=== PATIENT | male | born 2000 | race Two or more races ===

== ENCOUNTER 2019-06-12 09:23 | Emergency (ER) | payer MEDICAID ==
[2019-06-12 09:43] VITALS: BP 113/66
[2019-06-12] MEDS ORDERED: cefTRIAXone 250 MG VIAL IM STA (10:13)
[2019-06-12] MEDS ORDERED: AZITHROMYCIN 250 MG TABLET PO STA (10:13)
[2019-06-12] MEDS ORDERED: LIDOCAINE 1% 2 ML VIAL MC ONE (10:13)
--- NOTE | 2019-06-12 10:15 | ED Physician Documentation ---
History of Present Illness - Stated complaint Stated Complaint: RT WRIST PX/MALE - Chief complaint Chief Complaint: Ext Problem - History obtained from History obtained from: Patient - History of Present Illness Timing: How many weeks ago (1) - Additonal information Additional information: 19-year-old male has punched a beam with his right hand about 1 week ago when he has persistence of pain in the wrist he is unable to open a door without pain to the wrist and he is wondering about the possibility of a fracture. He initially had some swelling that is now resolved. In addition he is concerned about STD recurring. He has been with 2 different women and 1 of them has told him he had they have infection. He has had recent infection and he believes he may have passed this back and forth between partners. He is requesting treatment and is inquiring about the most efficient way to get his partner tested and treated. He specifically denies any specific symptoms today of STD. He denies any scrotal swelling or tenderness he denies any inguinal adenopathy he denies any discharge he denies any sores or outbreaks. Review of Systems Constitutional: denies: Fever Eyes: denies: Decreased vision Ears: denies: Ear pain Nose: denies: Rhinorrhea / runny nose, Congestion Throat: denies: Sore throat Cardiac: denies: Chest pain / pressure, Palpitations Respiratory: denies: Dyspnea, Cough GI: denies: Abdominal Pain, Nausea, Vomiting : denies: Dysuria, Frequency, Discharge Skin: denies: Rash Musculoskeletal: denies: Neck pain, Back pain, Extremity pain Neurologic: denies: Generalized weakness, Focal weakness, Numbness PD PAST MEDICAL HISTORY - Allergies Allergies/Adverse Reactions: Allergies Allergy/AdvReac Type Severity Reaction Status Date / Time No Known Drug Allergies Allergy Verified 06/12/19 09:38 PD ED PE NORMAL - Vitals Vital signs reviewed: Yes (normal) - General General: Alert and oriented X 3, No acute distress, Well developed/nourished - HEENT HEENT: Atraumatic, PERRL, EOMI - Respiratory Respiratory: No respiratory distress - Derm Derm: Normal color, Warm and dry, No rash - Extremities Extremities: No deformity, No edema, Other (mild tenderness to the dorsal wrist on the right with preserved function and distal n/v. ) - Neuro Neuro: Alert and oriented X 3, flap lining binder 2-12 intact, No motor deficit, No sensory deficit, Normal speech Eye Opening: Spontaneous Motor: Obeys Commands Verbal: Oriented GCS Score: 15 - Psych Psych: Normal mood, Normal affect Results - Vitals Vitals: Vital Signs - 24 hr 06/12/19 09:38 Temperature 36.5 C Heart Rate 72 Respiratory 14 Rate Blood Pressure 113/66 O2 Saturation 99 Oxygen O2 Source Room air - Rads (name of study) wrist Radiology: Prelim report reviewed (Impression: Normal wrist radiography.), EMP read indepedently, See rad report PD MEDICAL DECISION MAKING - ED course Complexity details: reviewed results, re-evaluated patient, considered differential, d/w patient ED course: 19-year-old male with a sprained wrist and exposure to STD. He is treated for the STD empirically and a specimen is obtained for confirmation. He is administered Rocephin 250 mg IM and azithromycin 1 g p.o. He is placed into a volar wrist splint. Is given instructions about wrist sprain. Is given instructions about male STD treated. Departure - Departure Disposition: 01 Home, Self Care Clinical Impression: STD exposure Sprain of right wrist Qualifiers: Encounter type: initial encounter Qualified Code(s): S63.501A - Unspecified sprain of right wrist, initial encounter Condition: Stable Instructions: ED Sprain Wrist, ED STD Male Treated Follow-Up: Derrick [facility] [Provider Group]
--- NOTE | 2019-06-12 10:33 | XRAY Report ---
Reason: persistent pain after punching a beam Procedure Date: 06/12/2019 Accession Number: [id number] / [id number] Procedure: XR - Wrist 4 View RT CPT Code: Final Report FULL RESULT: EXAM: RIGHT WRIST RADIOGRAPHY EXAM DATE: 06/12/2019 10:24 AM. CLINICAL HISTORY: Persistent pain after punching a beam, 1 week ago. COMPARISON: None. TECHNIQUE: 4 views. FINDINGS: Bones: Normal. No fractures or bone lesions. Joints: Normal. No subluxations. Soft Tissues: Normal. No soft tissue swelling. IMPRESSION: Normal wrist radiography. RADIA
== END 2019-06-12 10:54 | disposition home or self-care (01) ==
LOC: ED 09:23
DX: S63.501A Unspecified sprain of right wrist, initial encounter (principal); W22.8XXA Striking against or struck by other objects, initial encounter; Z20.2 Contact with and (suspected) exposure to infections with a predominantly sexual mode of transmission
CPT/HCPCS: 73110; 96372; 99283; 99284; A9270; 87491; 87591; 87661

== ENCOUNTER 2020-02-03 12:35 | Emergency (ER) | payer MEDICAID ==
--- NOTE | 2020-02-03 13:25 | ED Physician Documentation ---
PD HPI LOWER EXT INJURY - Stated complaint Stated Complaint: CHECKUP - Chief complaint Chief Complaint: General - History obtained from History obtained from: Patient - History of Present Illness PD HPI LOW EXT INJURY LOCATION: Right, Knee Type of injury: Twist (he states he has had problems with right knee clicking and popping and giving out for several years, with eval previously of normal xray and given sleeve brace for knee. Dx as strain. He says it limits his ability to play sports. Having increased symptoms the past few months, particularly with pivot). No: Fall Timing - onset: How many years ago (few years ago with increased frequency of symptoms (pain, swelling, locking, giving out).) Timing - details: Still present, Intermittant Improved by: Rest Worsened by: Other (pivoting and walking incline. Feels grinding feeling when does.) Associated symptoms: Swelling (intermittently, not current.). No: Weakness, Numbness Similar symptoms before: Has not had sx before Recently seen: Emergency Dept (treated for penile discharge/STD and improved. Was supposed to get retested to ensure fully cleared and had not.) Review of Systems Constitutional: denies: Fever, Chills Nose: reports: Sinus pressure / pain (with thicker output with nose blowing.). denies: Rhinorrhea / runny nose, Congestion Respiratory: reports: Cough (with patrick/thick sputum that has traces of blood. This has been for several days.). denies: Dyspnea, Wheezing PD PAST MEDICAL HISTORY - Past Medical History Cardiovascular: None Respiratory: None (he does vape a lot and is concerned about effect on lungs. ) Endocrine/Autoimmune: None - Present Medications Home Medications: Ambulatory Orders Medication Instructions Recorded Confirmed Doxycycline Hyclate 100 mg PO BID #14 tablet. 02/03/20 Naproxen [EC-Naproxen] 500 mg PO BID #30 tablet. 02/03/20 dexAMETHasone [Decadron] 4 mg PO DAILY #5 tablet 02/03/20 - Allergies Allergies/Adverse Reactions: Allergies Allergy/AdvReac Type Severity Reaction Status Date / Time No Known Drug Allergies Allergy Verified 06/12/19 09:38 - Social History Does the pt smoke?: No Smoking Status: Never smoker Results - Vitals Vitals: Vital Signs - 24 hr 02/03/20 02/03/20 12:51 14:51 Temperature 36.6 C 36.8 C Heart Rate 56 L 62 Respiratory 16 18 Rate Blood Pressure 115/67 119/68 O2 Saturation 98 97 Oxygen O2 Source Room air PD MEDICAL DECISION MAKING - ED course Complexity details: reviewed results, considered differential (his knee sounds like meniscal. ACL testing is negative. Has had prior xray without findings. Will refer to Ortho. Can use urine for screening on STDs. His cough/congestion sound concerning for bacterial. Can treat for that. ), d/w patient Departure - Departure Disposition: Home, Self Care Clinical Impression: Pain of meniscus of right knee, Screening for STD (sexually transmitted disease) Sinusitis Qualifiers: Sinusitis location: unspecified location Chronicity: acute Recurrence: non- recurrent Qualified Code(s): J01.90 - Acute sinusitis, unspecified Condition: Stable Record reviewed to determine appropriate education?: Yes Instructions: ED Meniscal Injury Knee Poss Follow-Up: Aryan London MD [Provider Admit Priv/Credential] - [facility] [Provider Group] Prescriptions: dexAMETHasone [Decadron] 4 mg PO DAILY #5 tablet Doxycycline Hyclate 100 mg PO BID #14 tablet. Naproxen [EC-Naproxen] 500 mg PO BID #30 tablet. Comments: Use the hinged knee brace when up and around for a little better support of the cartilage in the knee joint. Follow-up with orthopedics for further evaluation. Call their office for an appointment. They typically will get people in within a week or so. Use some anti-inflammatories such as naproxen twice daily. Add Tylenol if needed for pain. Sounds like you may have a bronchitis or sinus infection. We can treat that with anti-inflammatory and the antibiotic. Your urine test will result in 1 or 2 days regarding follow-up on the STD. We will call you if there is any positives. Discharge Date/Time: 02/03/20 14:51
[2020-02-03] MEDS ORDERED: DOXYCYCLINE 100 MG TABLET PO STA (14:09)
[2020-02-03] MEDS ORDERED: CHERRY SYRUP 10 ML UDC PO ONE (14:09)
[2020-02-03] MEDS ORDERED: DEXAMETHASONE 10 MG/ML VIAL PO STA (14:09)
[2020-02-03 14:52] VITALS: BP 119/68
== END 2020-02-03 14:51 | disposition home or self-care (01) ==
LOC: ED 12:35
DX: M25.561 Pain in right knee (principal); J01.90 Acute sinusitis, unspecified; Z11.3 Encounter for screening for infections with a predominantly sexual mode of transmission; F17.290 Nicotine dependence, other tobacco product, uncomplicated
CPT/HCPCS: 99283; 99284; A9270; 87491; 87591; 87661